=== PATIENT | male | born 1975 | race African-American/Black ===

== ENCOUNTER 2018-10-30 12:43 | Emergency (ER) | payer OTHER ==
[~2018-10-30] VITALS: Ht 177.8 cm; Wt 78.6 kg
--- NOTE | 2018-10-30 14:38 | REP ---
CT STUDY OF THE CERVICAL SPINE WITHOUT CONTRAST: HISTORY: Status post fall. Rule out trauma. TECHNIQUE: Helical scanning is acquired and overlapping 2 mm high resolution axial images were generated and reviewed at bone and soft tissue window settings. Coronal and sagittal multiplanar re-formations images are generated. CT FINDINGS: There is no evidence of cervical spine element fracture. No skull base fracture is seen. Cervical vertebral body heights are preserved. There is reversal of the normal cervical lordosis and some straightening. Alignment is otherwise normal. Facet joints are normally aligned bilaterally at each cervical level on multiplanar re-formations images. There is no evidence of intraspinal or paraspinal hematoma. No extra vertebral abnormality is seen. There are mild degenerative spondylosis changes at C3-4, C4-5, and C5-6. There is mucosal thickening in the left maxillary sinus. IMPRESSION: Reversal of the normal cervical lordosis. Mild degenerative disc changes. Otherwise negative CT study of the cervical spine without contrast. No fracture seen. Electronically Signed by Bryon Saucedo MD 10/30/2018 05:14 P
--- NOTE | 2018-10-30 14:38 | REP ---
CT THORACIC SPINE WITHOUT CONTRAST: HISTORY: Trauma. FINDINGS: Thoracic vertebral body heights are preserved. No fracture or collapse is seen. Pedicles and posterior elements are intact. Disc spaces are maintained. No paravertebral soft tissue lesion is appreciated. IMPRESSION: Negative CT study of the thoracic spine. No fracture seen. Electronically Signed by Bryon Saucedo MD 10/30/2018 05:14 P
--- NOTE | 2018-10-30 14:38 | REP ---
CT LUMBAR SPINE WITHOUT CONTRAST: HISTORY: Trauma. CT FINDINGS: Vertebral body heights are preserved. Alignment is normal. No fracture or collapse is seen. There is no evidence of spondylolysis or spondylolisthesis. There is a Schmorl's node at the inferior endplate of L3 noted incidentally. No lumbar disc protrusion is appreciated. No bony neural foraminal encroachment is seen. Facets are normally aligned. IMPRESSION: Negative CT study of the lumbar spine without contrast. No traumatic abnormality noted. Electronically Signed by Bryon Saucedo MD 10/30/2018 05:13 P
--- NOTE | 2018-10-30 14:40 | REP ---
RIGHT KNEE SERIES: Six views of the right knee are performed. There is no acute fracture or dislocation. There is moderate medial joint space narrowing with subchondral sclerosis and cystic change as well as spurring. There is bilateral patellofemoral compartment narrowing. IMPRESSION: Degenerative changes without evidence of fracture or dislocation. Electronically Signed by Alejandro Willoughby MD 10/31/2018 10:02 A
--- NOTE | 2018-10-30 14:41 | REP ---
CT brain without contrast: History: Status post fall. No comparison brain CT. CT findings: Preliminary digital medical support assistant views are unremarkable. Bone window settings demonstrate an intact bony calvarium. No skull fracture is appreciated. The visualized paranasal sinuses are clear except for the left frontal sinus which is opacified. There is no visible scalp hematoma. On soft tissue window settings, there is no evidence of intracranial hemorrhage. There are scattered areas of low attenuation at the monzon-white junction and in the subcortical white matter of the supratentorial brain bilaterally. These could represent areas of demyelinating disease. There is no evidence of acute cortical infarction. No mass or midline shift is seen. No extra-axial fluid collection is observed. Impression: Multiple foci of low density in the subcortical white matter of the supratentorial brain bilaterally. Question demyelinating disease. Consider MRI study. There is no evidence of intracranial hemorrhage or acute cortical infarction. Electronically Signed by Bryon Saucedo MD 10/30/2018 05:14 P
--- NOTE | 2018-10-30 14:42 | REP ---
CT CHEST WITHOUT IV CONTRAST: CT chest performed without IV contrast. Sagittal and coronal reconstruction images are performed. No infiltrate or other significant parenchymal opacity is seen bilaterally. Residual thymic tissue is seen in the anterior mediastinum. No gross adenopathy is seen. Thoracic aorta is grossly unremarkable with no aneurysm. The heart is normal in size. There is no pleural or pericardial effusion. Visualized osseous structures appear intact. There are fairly severe arthritic changes at the glenohumeral joints bilaterally with joint space narrowing, subchondral sclerosis and cystic change, as well as spurring. Two large calcific bodies are seen at the margin of the right humeral head. IMPRESSION: No posttraumatic abnormalities identified. There appears to be residual thymic tissue in the anterior mediastinum. No evidence of fracture of the visualized osseous structures. No abnormal parenchymal opacity or pleural effusion. Electronically Signed by Alejandro Willoughby MD 10/31/2018 10:02 A
--- NOTE | 2018-10-30 14:45 | REP ---
RIGHT SHOULDER, THREE VIEWS: Three views of the right shoulder performed. No acute fracture or dislocation is seen. There is severe joint space narrowing with subchondral sclerosis and cystic change at the glenohumeral joint as well as spurring of the inferior aspect of the humeral head. There is an adjacent round calcific body at the inferior margin of the joint which measures approximately 3 cm in diameter. There is mild narrowing at the acromioclavicular joint. IMPRESSION: Degenerative changes. No acute fracture or dislocation. Electronically Signed by Alejandro Willoughby MD 10/31/2018 10:03 A
[2018-10-30 15:29] VITALS: BP 130/77
== END 2018-10-30 15:30 | disposition home or self-care (01) ==
LOC: EDBD 12:43 → M ED 14:25
DX: S09.90XA Unspecified injury of head, initial encounter (principal); M23.91 Unspecified internal derangement of right knee; R94.02 Abnormal brain scan; W18.2XXA Fall in (into) shower or empty bathtub, initial encounter; Y92.148 Other place in prison as the place of occurrence of the external cause; Y93.9 Activity, unspecified; Y99.9 Unspecified external cause status; J45.909 Unspecified asthma, uncomplicated; J44.9 Chronic obstructive pulmonary disease, unspecified; Z72.0 Tobacco use

== ENCOUNTER → 2018-12-18 | Outpatient (REF) | payer OTHER ==
[2018-12-18 14:50] LABS: INR 1.07; PROTHROMBIN TIME 13.6 SECONDS (11.8-14.0)
== END ==
LOC: M LAB REF 14:20
PROVIDERS: ATTEND Surgery
DX: G37.8 Other specified demyelinating diseases of central nervous system (principal)

== ENCOUNTER → 2019-01-04 | Outpatient (CLI) | payer OTHER ==
--- NOTE | 2019-01-04 11:54 | REP ---
LEFT SHOULDER SERIES: Three views. HISTORY: Pain in the left shoulder. Comparison is made with right shoulder radiographs from October 30, 2018. FINDINGS: There is normal alignment of the glenohumeral and acromioclavicular joints. There is joint space narrowing, subarticular sclerosis, and cyst formation in the humeral head consistent with glenohumeral osteoarthritis. There is at least one periarticular ossific density 7 mm in diameter inferiorly at the glenohumeral articulation. Similar but more prominent findings are noted on the contralateral right side from this past October radiographs. No acute bony abnormality is seen. IMPRESSION: Fairly advanced glenohumeral osteoarthritis with sclerosis joint space narrowing, subcortical cyst formation, and one 7-mm periarticular calcific density which could be a loose body. Similar, more pronounced changes were noted previously on the right. Electronically Signed by Bryon Saucedo MD 01/04/2019 01:02 P
== END ==
LOC: M RAD 09:18
PROVIDERS: ATTEND Surgery
DX: M19.012 Primary osteoarthritis, left shoulder (principal); M85.40 Solitary bone cyst, unspecified site